=== PATIENT | male | born 1970 | race Caucasian/White ===

== ENCOUNTER 2018-08-12 10:09 | Outpatient (CLI) | payer SELFPAY ==
[2018-08-12 12:09] LABS: Hemoglobin A1C 6.2 % (4.5-6.2)
[2018-08-12 12:25] LABS: Glucose 96 mg/dL (70-100); TSH (W/Ref FT4) 1.29 uIU/mL (0.358-3.74); Vitamin B12 385 pg/mL (193-986)
== END 2018-08-12 10:29 ==
PROVIDERS: PCP General Practice; Visit Provider General Practice
DX: G62.89 Other specified polyneuropathies (principal)
CPT/HCPCS: 36415; 82947; 82607; 83036; 84443